=== PATIENT | male | born 1950 | race Caucasian/White ===

== ENCOUNTER → 2018-11-14 | Outpatient (CLI) | payer MEDICARE, OTHER ==
--- NOTE | 2018-11-14 14:54 | RAD ---
CHEST PA LATERAL History: Atrial fibrillation, cough, tightness, night sweats Comparison: None. Findings: 2 views of the chest are submitted. Pericardial cardiac silhouette is enlarged. There is very mild blunting of the costophrenic sulci on the lateral view although could be chronic, relative flattening of the hemidiaphragms. There is mild linear opacity at the bilateral lung bases, may be due to fibrotic change or atelectasis. No pneumothorax is identified. A somewhat tortuous thoracic aorta. There is anterior wedge deformity of mid thoracic vertebral body, likely T8. Impression: 1. There is flattening of the hemidiaphragms which may be due to emphysema, mild blunting of the costophrenic sulci of uncertain chronicity. 2. There is mild bibasilar atelectasis or fibrotic change. 3. There is wedge deformity of a mid thoracic vertebral body of uncertain chronicity, correlation with any point tenderness advised. Electronically signed by: Lc Soto MD (11/14/2018 2:51 PM) [id number]
== END | disposition home or self-care (01) ==
LOC: DXRAD 09:50
PROVIDERS: ATTEND Family Medicine
DX: I48.91 Unspecified atrial fibrillation (principal); I50.9 Heart failure, unspecified; R61 Generalized hyperhidrosis; M43.8X4 Other specified deforming dorsopathies, thoracic region
CPT/HCPCS: 71046

== ENCOUNTER 2020-06-16 21:31 | Emergency (ER) | payer MEDICARE, OTHER ==
[~2020-06-16] VITALS: Ht 170.2 cm; Wt 68.2 kg
--- NOTE | 2020-06-16 22:07 | RAD ---
Exam: CT head and cervical spine INDICATION: Altered mental status TECHNIQUE: Sequential axial images through the head and cervical spine were obtained without the admi nistration of IV contrast. Comparisons: None FINDINGS: Head: No focal parenchymal lesion or hemorrhage is identified. There is no midline shift or sulcal effaceme nt. No acute vascular territory infarction is identified. Monson-white distinction is preserved. The ventricular system is within normal limits without compression hydrocephalus. The basal cisterns are well maintained. The visualized portions of the paranasal sinuses and mastoid air cells are well-pneumatized. No acute fractures. Cervical spine: Vertebral body heights and alignment are well-maintained. Osseous body fusion at C2-C3 and C5-C6. Fracture to the cervical spine is not identified. Multilevel spondylotic change in cervical spine with degenerative disc disease greatest at C7-T1. Mil d bilateral facet arthropathy is also noted. Visualized paraspinal soft tissues are unremarkable. IMPRESSION: 1. No acute intracranial abnormality. 2. Negative CT C-spine for acute traumatic injury. Exposure: One or more of the following in the visualized dose reduction techniques were utilized for this examination: 1. Automated exposure control 2. Adjustment of the MA and/or KV according to patient size Use of iterative of reconstructive technique Electronically signed by: Ivania Tavares MD (06/16/2020 10:05 PM) [facility]
[2020-06-16 22:23] LABS: BASO # 0.1 x10^3/uL (0.0-0.2); BASO % 1 % (0-3); EOS # 0.2 x10^3/uL (0.0-0.7); EOS % 2 % (0-3); HEMOGLOBIN 15.4 g/dL (13.0-17.5); LYMPH # 3.4 x10^3/uL (1.0-4.8); LYMPH % 36 % (24-48); MEAN CORPUSCULAR HEMOGLOBIN 33 pg (25-35); MEAN CORPUSCULAR HGB CONC 33 g/dL (31-37); MEAN CORPUSCULAR VOLUME 100 fL (79-100); MONO # 0.8 x10^3/uL (0.0-1.1); MONO % 9 % (0-9); NEUT # 4.7 x10^3uL (1.8-7.7); NEUT % 51 % (31-73); PLATELET COUNT 349 x10^3/uL (140-400); RED BLOOD COUNT 4.69 x10^6/uL (4.30-5.70); RED CELL DISTRIBUTION WIDTH 13.5 % (11.5-14.5); WHITE BLOOD COUNT 9.2 x10^3/uL (4.0-11.0)
[2020-06-16 22:34] LABS: BGAS PH 7.39 (7.35-7.46)
--- NOTE | 2020-06-16 22:40 | RAD ---
EXAM: CHEST 1 VIEW History: Dyspnea COMPARISON: 11/14/2018 TECHNIQUE: Single portable radiograph of the chest FINDINGS: Moderate cardiomegaly. Mild bibasilar airspace opacities The costophrenic sulci are clear and well demarcated. IMPRESSION: Mild bibasilar lung airspace opacities likely atelectasis or infiltrates. Electronically signed by: Man Covarrubias MD (06/16/2020 10:38 PM) [id number]
[2020-06-16 22:41] LABS: CALCIUM 8.8 mg/dL (8.5-10.1); CREATININE 1.1 mg/dL (0.7-1.3); POTASSIUM 3.4 mmol/L (3.5-5.1)
[2020-06-16 22:48] LABS: SALIC < 2.8 mg/dL (2.8-20.0)
[2020-06-16 22:50] LABS: ETHANOL 430 mg/dL (0-10)
[2020-06-16 22:51] LABS: ACETAMIN < 2.0 mcg/mL (10-30)
[2020-06-16 22:54] LABS: ALBUMIN 3.8 g/dL (3.4-5.0); DIRECT BILIRUBIN 0.1 mg/dL (0.0-0.2); MAGNESIUM 2.1 mg/dL (1.8-2.4); TOTAL BILIRUBIN 0.2 mg/dL (0.2-1.0); TOTAL PROTEIN 7.6 g/dL (6.4-8.2)
[2020-06-16] MEDS ORDERED: MIDAZOLAM HCL PF 5 MG/5 ML VIAL. IV ONE (23:00)
[2020-06-16] MEDS ORDERED: IV RINGERS SOLUTION,LACTATED 1,000 ML IV SCH (23:00)
--- NOTE | 2020-06-16 23:07 | EKG ---
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
[2020-06-17] MEDS ORDERED: MVI, ADULT NO.4 WITH VIT K 10 ML, FOLIC ACID INJ 1 MG, THIAMINE INJ 100 MG in IV NORMAL... IV ONE ×2 (00:15)
[2020-06-17] MEDS ORDERED: MVI, ADULT NO.4 WITH VIT K 10 ML, THIAMINE INJ 100 MG in IV RINGERS SOLUTION,LACTATED 1... IV ONE (00:15)
[2020-06-17] MEDS ORDERED: MVI, ADULT NO.4 WITH VIT K 10 ML, FOLIC ACID INJ 1 MG, THIAMINE INJ 100 MG in IV RINGER... IV ONE ×3 (00:15)
[2020-06-17] MEDS ORDERED: THIAMINE 200 MG/2 ML VIAL. IV ONE (00:18)
[2020-06-17 00:42] LABS: BARBITURATES NEG (NEG); BENZODIAZEPINES NEG (NEG); CANNABINOIDS NEG (NEG); COCAINE NEG (NEG); METHADONE NEG (NEG); OPIATES POS (NEG); PHENCYCLIDINE NEG (NEG)
[2020-06-17 00:48] LABS: AMPHETAMINE/METHAMPHETAMINE NEG (NEG)
--- NOTE | 2020-06-17 00:55 | PHYS DOC ---
Past History Past Medical History: A-Fib, Alcoholism, Hypertension Additional Past Medical Histor: chronic back pain Past Surgical History: Other Additional Past Surgical Histo: cardiac ablation Smoking: Cigarettes Alcohol Use: Heavy Drug Use: None General Adult EDM: Chief Complaint: ALTERED MENTAL STATUS HPI: HPI: ".. 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 I gu ess I am not recovering any more..." Patient is a 70 year old male who presents with above hx and complaints of acute mental status change. Patient's mental status gradually improved while emergency department and he became more verbal and coherent. Patient advised he been drinking extremely heavy because of this past history of alcoholism and depression over his 's health. Patient normally follows at . Patient states he is not suicidal. Patient refuses to talk to a counselor at this time. Patient does agree to stay until he is more sober. Discussed patient's condition with she states she would be willing to take him home. Patient declined any alcohol rehab at this time. Patient has history of PTSD, anxiety, seasonal allergies, chronic bronchitis, hypertension, GERD, chronic pain, colitis, and alcoholism. Patient does report he is under increase d stressors because his 's declining health secondary to advanced Parkinson's. Review of Systems: Review of Systems: Constitutional: Denies fever or chills Eyes: Denies change in visual acuity HENT: Denies nasal congestion or sore throat Respiratory: Denies cough or shortness of breath Cardiovascular: Denies chest pain or edema GI: Denies abdominal pain, nausea, vomiting, bloody stools or diarrhea : Denies dysuria Musculoskeletal: Denies back pain or joint pain Integument: Denies rash Neurologic: Denies headache, focal weakness or sensory changes Endocrine: Denies polyuria or polydipsia Lymphatic: Denies swollen glands Psychiatric: Complains of depression and anxiety Family History: Family History: Noncontributory to presentation Current Medications: Current Meds: Current Medications Medications (Trade) Dose Ordered Sig/Nelly Start Time Stop Time Status Last Admin Dose Admin Lactated Ringer's 1,000 ml @ 100 mls/hr Q10H 06/16/20 23:00 06/17/20 08:59 06/16/20 22:42 100 MLS/HR Midazolam HCl (Versed) 5 mg 1X ONCE 06/16/20 23:00 06/16/20 23:01 DC Multivitamins/ Minerals 10 ml/ Folic Acid 1 mg/ Thiamine HCl 100 mg/Lactated Ringer's 1,011.3 ml @ 1,011.3 mls/hr 1X ONCE 06/17/20 00:15 06/17/20 01:14 UNV Multivitamins/ Minerals 10 ml/ Folic Acid 1 mg/ Thiamine HCl 100 mg/Sodium Chloride 1,011.3 ml @ 1,000.187 mls/hr 1X ONCE 06/17/20 00:15 06/17/20 01:15 UNV Multivitamins/ Minerals 10 ml/ Thiamine HCl 100 mg/Lactated Ringer's 1,011.3 ml @ 1,011.3 mls/hr 1X ONCE 06/17/20 00:15 06/17/20 01:14 06/17/20 00:15 1,011.3 MLS/HR Thiamine HCl (Thiamine Vial) 200 mg STK-MED ONCE 06/17/20 00:18 06/17/20 00:19 DC Allergies: Allergies: Allergies Coded Allergies Type Severity Reaction Last Updated Verified No Known Drug Allergies 06/16/20 No Physical Exam: PE: Constitutional: no acute distress, very intoxicated in appearance. [] HENT: Normocephalic, atraumatic, bilateral external ears normal, oropharynx moist, no oral exudates, nose normal. [] Eyes: PERRLA, EOMI, conjunctiva normal, no discharge. [] Neck: Normal range of motion, no tenderness, supple, no stridor. [] Cardiovascular:Heart rate regular rhythm, no murmur [] Lungs & Thorax: Bilateral breath sounds equal at apex auscultation [] Abdomen: Bowel sounds normal, soft, no tenderness, no masses, no pulsatile masses. [] Skin: Warm, dry, no erythema, no rash. [] Back: No tenderness, no CVA tenderness. [] Extremities: No tenderness, no cyanosis, no clubbing, ROM intact, no edema. [] Neurologic: Alert and oriented X 3, moves all extremities on request, does have distal sensory, very discoordinated initially on arrival but gait improved with time. DTRs +2 patella and brachial. Merchandising Representative equal. Psychologic: Affect anxious, judgement obviously impaired, mood depressed but besides suicidal ideation Current Patient Data: Labs: Laboratory Tests Test 06/16/20 21:57 06/16/20 22:00 06/16/20 23:44 White Blood Count 9.2 x10^3/uL (4.0-11.0) Red Blood Count 4.69 x10^6/uL (4.30-5.70) Hemoglobin 15.4 g/dL (13.0-17.5) Hematocrit 47.0 % (39.0-53.0) Mean Corpuscular Volume 100 fL (79-100) Mean Corpuscular Hemoglobin 33 pg (25-35) Mean Corpuscular Hemoglobin Concent 33 g/dL (31-37) Red Cell Distribution Width 13.5 % (11.5-14.5) Platelet Count 349 x10^3/uL (140-400) Neutrophils (%) (Auto) 51 % (31-73) Lymphocytes (%) (Auto) 36 % (24-48) Monocytes (%) (Auto) 9 % (0-9) Eosinophils (%) (Auto) 2 % (0-3) Basophils (%) (Auto) 1 % (0-3) Neutrophils # (Auto) 4.7 x10^3uL (1.8-7.7) Lymphocytes # (Auto) 3.4 x10^3/uL (1.0-4.8) Monocytes # (Auto) 0.8 x10^3/uL (0.0-1.1) Eosinophils # (Auto) 0.2 x10^3/uL (0.0-0.7) Basophils # (Auto) 0.1 x10^3/uL (0.0-0.2) Prothrombin Time 11.0 SEC (9.4-11.4) Prothrombin Time INR 1.1 (0.9-1.1) Activated Partial Thromboplast Time 26 SEC (23-33) D-Dimer (Leslie) 0.26 mg/L (0.00-0.50) Sodium Level 144 mmol/L (136-145) Potassium Level 3.4 mmol/L (3.5-5.1) L Chloride Level 106 mmol/L (98-107) Carbon Dioxide Level 27 mmol/L (21-32) Anion Gap 11 (6-14) Blood Urea Nitrogen 14 mg/dL (8-26) Creatinine 1.1 mg/dL (0.7-1.3) Estimated GFR (Cockcroft-Gault) 66.0 Glucose Level 107 mg/dL (70-99) H Calcium Level 8.8 mg/dL (8.5-10.1) Magnesium Level 2.1 mg/dL (1.8-2.4) Total Bilirubin 0.2 mg/dL (0.2-1.0) Direct Bilirubin 0.1 mg/dL (0.0-0.2) Aspartate Amino Transferase (AST) 47 U/L (15-37) H Alanine Aminotransferase (ALT) 69 U/L (16-63) H Alkaline Phosphatase 100 U/L (46-116) Ammonia 11 mcmol/L (11-34) Creatine Kinase 101 U/L (39-308) Troponin I Quantitative < 0.017 ng/mL (0-0.055) YA-Apx-U-Type Natriuretic Peptide 79 pg/mL (0-124) Total Protein 7.6 g/dL (6.4-8.2) Albumin 3.8 g/dL (3.4-5.0) Lipase 160 U/L (73-393) Salicylates Level < 2.8 mg/dL (2.8-20.0) L Salicylate Last Dose Date Unknown Salicylate Last Dose Time Unknown Acetaminophen Level < 2.0 mcg/mL (10-30) L Acetaminophen Last Dose Date Unknown Acetaminophen Last Dose Time Unknown Ethyl Alcohol Level 430 mg/dL (0-10) *H Blood pH 7.39 (7.35-7.46) Blood Gas PCO2 35 mmHg (35-46) Blood Gas PO2 74 mmHg (71-100) Blood Gas HCO3 22 mmol/L (21-28) Arterial Bld O2 Saturation (Calc) 95 % (92-99) FiO2 21 % Urine Opiates Screen Pos (NEG) Urine Methadone Screen Neg (NEG) Urine Barbiturates Neg (NEG) Urine Phencyclidine Screen Neg (NEG) Urine Amphetamine/Methamphetamine Neg (NEG) Urine Benzodiazepines Screen Neg (NEG) Urine Cocaine Screen Neg (NEG) Urine Cannabinoids Screen Neg (NEG) Urine Ethyl Alcohol Pos (NEG) Vital Signs: Vital Signs Date Time Temp Pulse Resp B/P (MAP) Pulse Ox O2 Delivery O2 Flow Rate FiO2 06/16/20 23:14 67 18 119/79 (92) 95 Room Air 06/16/20 21:37 98.6 EKG: EKG: My interpretation EKG shows a sinus rhythm at 76 bpm. Left axis. No findings of acute STEMI with contralateral changes there is some low voltage and inferior changes. [] Radiology/Procedures: Radiology/Procedures: [][address] [address] IMAGING REPORT Signed PATIENT: JOSE GEORGE ACCOUNT: [id number] : 1950 LOCATION: ER AGE: 70 SEX: M EXAM STATUS: PRE ER ORD. PHYSICIAN: LIZETTE THOMPSON MD REASON: ALTERED MENTAL STATUS PROCEDURE: CT HEAD AND CERVICAL SPINE WO Exam: CT head and cervical spine INDICATION: Altered mental status TECHNIQUE: Sequential axial images through the head and cervical spine were obtained without the administration of IV contrast. Comparisons: None FINDINGS: Head: No focal parenchymal lesion or hemorrhage is identified. There is no midline shift or sulcal effacement. No acute vascular territory infarction is identified. Monson-white distinction is preserved. The ventricular system is within normal limits without compression hydrocephalus. The basal cisterns are well maintained. The visualized portions of the paranasal sinuses and mastoid air cells are well- pneumatized. No acute fractures. Cervical spine: Vertebral body heights and alignment are well-maintained. Osseous body fusion at C2-C3 and C5-C6. Fracture to the cervical spine is not identified. Multilevel spondylotic change in cervical spine with degenerative disc disease greatest at C7-T1. Mild bilateral facet arthropathy is also noted. Visualized paraspinal soft tissues are unremarkable. IMPRESSION: 1. No acute intracranial abnormality. 2. Negative CT C-spine for acute traumatic injury. Exposure: One or more of the following in the visualized dose reduction techniques were utilized for this examination: 1. Automated exposure control 2. Adjustment of the MA and/or KV according to patient size Use of iterative of reconstructive technique Electronically signed by: Ivania Fowler MD (06/16/2020 10:05 PM) [facility] DICTATED AND SIGNED BY: IVANIA FOWLER MD DATE: 06/16/20 [id number] CC: LIZETTE THOMPSON MD; MARITZA TIERNEY DO ~MTH0 [address] [address] IMAGING REPORT Signed PATIENT: JOSE GEORGE ACCOUNT: [id number] : 1950 LOCATION: ER AGE: 70 SEX: M EXAM STATUS: PRE ER ORD. PHYSICIAN: LIZETTE THOMPSON MD REASON: dyspnea PROCEDURE: PORTABLE CHEST 1V EXAM: CHEST 1 VIEW History: Dyspnea COMPARISON: 11/14/2018 TECHNIQUE: Single portable radiograph of the chest FINDINGS: Moderate cardiomegaly. Mild bibasilar airspace opacities The cos tophrenic sulci are clear and well demarcated. IMPRESSION: Mild bibasilar lung airspace opacities likely atelectasis or infilt rates. Electronically signed by: Man Covarrubias MD (06/16/2020 10:38 PM) [id number] DICTATED AND SIGNED BY: MAN COVARRUBIAS MD DATE: 06/16/202236 CC: LIZETTE THOMPSON MD; MARITZA TIERNEY DO ~MTH0 0 Heart Score: C/O Chest Pain: N/A HEART Score for Chest Pain: HEART Score for Chest Pain Response (Comments) Value History Slighlty/Non-Suspicious 0 ECG Normal 0 Age > 65 2 Risk Factors 1 or 2 Risk Factors 1 Troponin < Normal Limit 0 Total 3 Risk Factors: Risk Factors: DM, Current or recent (<one month) smoker, HTN, HLP, family history of CAD, obesity. Risk Scores: Score 0 - 3: 2.5% MACE over next 6 weeks - Discharge Home Score 4 - 6: 20.3% MACE over next 6 weeks - Admit for Clinical Observation Score 7 - 10: 72.7% MACE over next 6 weeks - Early Invasive Strategies Course & Med Decision Making: Course & Med Decision Making Pertinent Labs and Imaging studies reviewed. (See chart for details) Patient's mental status gradually cleared to where he was amatory without problems. The patient currently declines alcohol rehab. Discharged to the care of his children and his . Impression: 1. Acute alcohol intoxication= alcohol tonight was 430 2. History of PTSD 3. Depression anxiety- Denies suicidal ideation [] Dragon Disclaimer: Dragon Disclaimer: This electronic medical record was generated, in whole or in part, using a voice recognition dictation system. Departure Departure: Referrals: MARITZA TIERNEY DO (PCP) Charlee Disclaimer This chart was dictated in whole or in part using Voice Recognition software in a busy, high-work load, and often noisy Emergency Department environment. It may contain unintended and wholly unrecognized errors or omissions. LIZETTE THOMPSON MD Jun 17, 2020 00:54
[2020-06-17 01:09] LABS: BACTERIA,URINE 0 /HPF (0-FEW); BILIRUBIN,URINE NEG (NEG); CLARITY,URINE CLEAR; COLOR,URINE YELLOW; GLUCOSE,URINE NEG (NEG); NITRITE,URINE NEG (NEG); RBC,URINE 0 /HPF (0-2); SQUAMOUS EPITHELIAL CELL,UR OCC /LPF; UROBILINOGEN,URINE 0.2 mg/dL (0.2 mg/dL); WBC,URINE OCC /HPF (0-4)
[2020-06-17 02:11] VITALS: BP 119/70
== END 2020-06-17 02:24 | disposition home or self-care (01) ==
LOC: ER 21:31
DX: F10.229 Alcohol dependence with intoxication, unspecified (principal); Y90.8 Blood alcohol level of 240 mg/100 ml or more; Z20.822 Contact with and (suspected) exposure to COVID-19; F41.8 Other specified anxiety disorders; F43.10 Post-traumatic stress disorder, unspecified; I48.91 Unspecified atrial fibrillation; I10 Essential (primary) hypertension; G89.29 Other chronic pain; F17.210 Nicotine dependence, cigarettes, uncomplicated
CPT/HCPCS: 36415; 36600; 70450; 71045; 72125; 80048; 80076; 80307; 80329; 81001; 82140; 82550; 82803; 83690; 83735; 83880; 84443; 84484; 85025; 85379; 85610; 85730; 87040; 93005; 96361; 96365; 96366; 99285; G0480; J7120; U0003; C9803; U0005